=== PATIENT | female | born 1960 | race Caucasian/White ===

== ENCOUNTER 2018-08-23 20:24 | Emergency (ER) | payer OTHER ==
[2018-08-23] MEDS ORDERED: TETANUS & DIPHTHERIA TOX,ADULT 0.5 ML VIAL ONE (20:56)
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
[2018-08-23] MEDS ORDERED: DIAZEPAM 2 MG TABLET ONE (21:49)
[2018-08-23] MEDS ORDERED: KETOROLAC 30 MG/ML INJ ONE (21:49)
== END 2018-08-23 22:03 | disposition home or self-care (01) ==
LOC: ER 20:24
DX: M62.830 Muscle spasm of back (principal); V46.5XXA Car driver injured in collision with other nonmotor vehicle in traffic accident, initial encounter; Z23 Encounter for immunization; I10 Essential (primary) hypertension; F17.210 Nicotine dependence, cigarettes, uncomplicated
CPT/HCPCS: 70450; 72125; 72131; 90714; 96372; 99285